=== PATIENT | female | born 1945 | race Caucasian/White ===

== ENCOUNTER → 2018-08-24 16:40 | Outpatient (CLI) | payer MEDICARE, BC, SELFPAY ==
[2018-08-24 18:55] LABS: Glucose 157 mg/dL (80-110); HEMOLYSIS < 15 (0-50); Potassium 3.9 mmol/L (3.4-5.1)
== END ==
PROVIDERS: PCP Podiatrist; Visit Provider Podiatrist
DX: Z01.818 Encounter for other preprocedural examination (principal)
CPT/HCPCS: 36415; 82947; 84132; 93005; 93010

== ENCOUNTER → 2019-02-13 10:15 | Outpatient (CLI) | payer MEDICARE, OTHER, SELFPAY ==
--- NOTE | 2019-02-13 10:20 | DI.RAD.S_ITS ---
PROCEDURE: XR HUMERUS RT 2V INDICATIONS: rule out fracture TECHNIQUE: 2 views of the humerus were acquired. COMPARISON: None. FINDINGS: Bones: No fractures or dislocations. No suspicious bony lesions. There is right shoulder joint degeneration. Right elbow chronic appearing degenerative changes. Soft tissues: No suspicious soft tissue calcifications. IMPRESSION: No humerus fracture identified. Right shoulder joint degeneration. Degenerative changes at the right elbow which could be better evaluated with dedicated right elbow radiographs. Dictated by: Jas Alfred M.D. on 02/13/2019 at 11:43 Approved by: Jas Alfred M.D. on 02/13/2019 at 11:46
== END ==
PROVIDERS: PCP Nurse Practitioner; Visit Provider Nurse Practitioner
DX: M79.601 Pain in right arm (principal); S49.91XA Unspecified injury of right shoulder and upper arm, initial encounter; M19.011 Primary osteoarthritis, right shoulder; W18.30XA Fall on same level, unspecified, initial encounter
CPT/HCPCS: 73060

== ENCOUNTER → 2019-03-04 12:21 | Outpatient (CLI) | payer MEDICARE, OTHER, SELFPAY ==
--- NOTE | 2019-03-04 | DI.MRI.S_ITS ---
PROCEDURE: MR CERVICAL SPINE WO CON INDICATIONS: Cervicalgia TECHNIQUE: Noncontrast sagittal T1 spin echo and T2 fast spin echo, sagittal STIR, foraminal oblique sagittal T2 fast spin echo, and axial gradient echo or T2 fast spin echo through the cervical spine. COMPARISON: [facility], CR, XR CERVICAL SPINE 2 OR 3 VIEWS, 02/22/2019, 9:33. FINDINGS: Image quality: Excellent. Alignment and Curvature: There is loss of normal cervical lordosis. Bone Marrow: Marrow demonstrates normal overall signal. Spinal Cord: Visualized spinal cord has normal size and signal. No cerebellar tonsillar herniation. Paraspinous Soft Tissues: There is a large right thyroid mass measuring 83 mm craniocaudal by 64 mm transverse by 50 mm anteroposterior. C2-C3: Mild bilateral facet hypertrophy. Mild canal stenosis. Mild bilateral foraminal stenosis. C3-C4: Mild disc desiccation and diffuse disc bulge. Moderate left and mild right facet hypertrophy. Mild canal stenosis. Severe left and mild right foraminal stenosis. Left C3 nerve root compression. C4-C5: Mild disc height loss and desiccation. Mild diffuse disc bulge. Moderate left and mild right facet hypertrophy. Moderate canal stenosis. Moderate left and mild right foraminal stenosis. C5-C6: Mild disc height loss and desiccation. Mild diffuse disc bulge. Mild facet and uncovertebral hypertrophy bilaterally. Moderate canal stenosis. Moderate right and mild left foraminal stenosis. C6-C7: Severe disc height loss and desiccation. Mild diffuse disc bulge. Mild bilateral facet hypertrophy. Moderate canal stenosis. Moderate bilateral foraminal stenosis. C7-T1: Mild disc height loss and desiccation. Moderate diffuse disc bulge with small superimposed broad-based central protrusion. Mild facet hypertrophy. Mild canal stenosis. No foraminal stenosis. IMPRESSION: 1. Large right thyroid mass; recommend further assessment with ultrasound. 2. Multilevel degenerative disc and facet disease. 3. Multilevel canal stenoses, worst at C4-C5, C5-C6, and C6-C7, where there are moderate canal stenoses present. 4. Multilevel foraminal stenoses, worst on the left at C3-C4 where there is left C3 nerve root compression. Recommend correlation with clinical symptoms to ascertain relevance of this finding. Dictated by: Terri Tai M.D. on 03/06/2019 at 9:30 Approved by: Terri Tai M.D. on 03/06/2019 at 9:35
== END ==
PROVIDERS: PCP Nurse Practitioner; Visit Provider Orthopaedic Surgery
DX: M50.31 Other cervical disc degeneration, high cervical region (principal); M48.02 Spinal stenosis, cervical region; E07.9 Disorder of thyroid, unspecified
CPT/HCPCS: 72141

== ENCOUNTER → 2019-04-20 10:27 | Outpatient (CLI) | payer MEDICARE, OTHER, SELFPAY ==
--- NOTE | 2019-04-20 10:29 | DI.US.S_ITS ---
PROCEDURE: US THYROID INDICATIONS: RIGHT THYROID LUMP TECHNIQUE: Real-time scanning was performed of the thyroid gland, with image documentation. COMPARISON: None. FINDINGS: Right: Thyroid lobe measures 8.3 x 3.8 x 6.2 cm, and is diffusely heterogeneous in echotexture. Left: Thyroid lobe measures 4.7 x 1.3 x 1.6 cm, and is homogenous in echotexture. Isthmus: 3.0 mm thick. Nodule number: 1 Location: Left mid to inferior Size: 2.4 x 0.7 x 1.2 cm. Composition: Solid Echogenicity: Hypoechoic Shape: wider than tall. Margins: Smooth Echogenic foci: None Total points: 4 ACR TI-RADS category: Moderately suspicious Nodule number: 2 Location: Left superior Size: 0.6 x 0.4 x 0.5 cm. Composition: Solid Echogenicity: Isoechoic Shape: wider than tall. Margins: Smooth Echogenic foci: None Total points: 3 ACR TI-RADS category: Mildly suspicious IMPRESSION: 1. Left thyroid nodules as above. Recommend sonographically directed fine needle aspiration of dominate # 1 left mid to inferior nodule. 2. Diffusely enlarged, heterogeneous and multinodular appearance of the right thyroid ACR TI-RADS definitions and recommendations: TI-RADS 1 (benign): 0 points. FNA not needed. TI-RADS 2 (not suspicious): 2 points. FNA not needed. TI-RADS 3 (mildly suspicious): 3 points. * FNA if 2.5 cm or larger, follow up if 1.5 cm or larger (at 1, 3, and 5 years). TI-RADS 4 (moderately suspicious): 4-6 points. * FNA if 1.5 cm or larger, follow up if 1 cm or larger (at 1, 2, 3, and 5 years). TI-RADS 5 (highly suspicious): 7 points or more. * FNA if 1 cm or larger, follow up if 0.5 cm or larger (every year for 5 years). Dictated by: Constantine Mesa A Interpreted: Jayleen Alba MD on 04/26/2019 at 9:24 Approved by: Jayleen Alba MD, PhD on 04/26/2019 at 16:43
== END ==
PROVIDERS: PCP Nurse Practitioner; Visit Provider Nurse Practitioner
DX: E04.2 Nontoxic multinodular goiter (principal)
CPT/HCPCS: 76536

== ENCOUNTER → 2019-06-16 09:44 | Outpatient (CLI) | payer MEDICARE, OTHER, SELFPAY ==
--- NOTE | 2019-06-16 | PATH_ITS ---
Note [facility] Accession Number: [id number] TESTS RESULT FLAG UNITS REF RANGE LAB Clinician Provided Cytology Information No. of containers..01 Other (Miscellaneous) No. of containers..00 Previously Prepared Cytology Slide 01 L THYROID MASS DIAGNOSIS: 01 LEFT THYROID MASS, FINE NEEDLE ASPIRATION. NEGATIVE FOR MALIGNANT CELLS. ADEQUATE FOR EVALUATION. FOLLICULAR GROUPS ARE PRESENT. BENIGN FOLLICULAR (GOITEROUS) NODULE (BETHESDA CATEGORY II), SEE COMMENT. COMMENT: MICROSCOPIC EXAMINATION REVEALS A MILDLY CELLULAR ASPIRATE, COMPOSED OF COLLOID, FOLLICULAR GROUPS WITHOUT SIGNIFICANT CYTOLOGIC OR ARCHITECTURAL ATYPIA, AND FEW BACKGROUND MACROPHAGES. THESE FINDINGS SUPPORT A BENIGN FOLLICULAR (GOITEROUS) NODULE. CORRELATION WITH CLINICAL AND RADIOGRAPHIC FINDINGS IS RECOMMENDED. ACCORDING TO THE [place]DA REPORTING SYSTEM FOR THYROID CYTOPATHOLOGY, THE RISK OF MALIGNANCY IN THE CATEGORY BENIGN-CATEGORY II IS 0-3%; THEREFORE RECOMMEND CONTINUED ULTRASOUND SURVEILLANCE WITH REPEAT FNA IF THE NODULE SIGNIFICANTLY INCREASES IN SIZE. Pathologist ICD10: 01 E04.1 01 73 year old female with PMH of denergative disc disease, HTN, and NIDDM2. She presents to clinic for pre-op surgery clearance. Never a smoker. 01 Dajuan Worley MD, Pathologist NPI- [id number] 01 Michael Delgadillo, Foam Caster ([facility]) 01 30 CC, PALE YELLOW, CLEAR Also received 5 alcohol fixed, 5 quick stained slides, and 1 RNA vial. /[facility] 06/19/2019 1019 Local FLAG LEGEND: L-Low Normal,H-High Normal,LL-Alert Low,HH-Alert High <-Panic Low,>-Panic High,A-Abnormal,AA-Critical Abnormal Performed at: 01 =Z [facility] [address], [place] [address] Erich Ojeda MD, Specimen Comment: A duplicate report has been generated due to demographic updates. Performed at: 01 [facility] [address] [place] [address] [address], [place], [place] [id number] MD Erich Ojeda MD Phone: [phone]
--- NOTE | 2019-06-16 09:45 | DI.US.S_ITS ---
PROCEDURE: US FINE NEEDLE ASPIRATION INDICATIONS: THYROID MASS, BX OF LT THYROID, ABN US ON 04/20/2019 TECHNIQUE: The indications, alternatives, benefits, risks, and complications of the procedure were explained to the patient. Written informed consent was obtained and placed in the chart. The thyroid region was examined sonographically and a site was chosen for ultrasound guided percutaneous sampling. The skin was prepared and draped in the usual fashion, and anesthetized with 1% lidocaine infiltrated from the skin down to the thyroid gland. Multiple passes were then performed, with contents emptied into an appropriate pathology specimen container. A bandage was applied to the area of access at completion of the study. COMPARISON: None. FINDINGS: Location(s) of lesion(s) sampled: Inferior left lobe Neptune: 25 gauge hypodermic needles. Number of passes: 5 Medications: 1% lidocaine for local anaesthesia. Complications: None. IMPRESSION: Successful ultrasound-guided thyroid nodule fine needle aspiration, with cytology results pending. Please see chart below for management recommendations based on cytology results. [facility] ReportingRecommendationsNon-diagnostic* Repeat US-guided FNA, with on-site cytology evaluation if possible. * Repeated non-diagnostic nodules without high suspicion US features: close observation vs surgical consult. * Consider surgery if nodule has high suspicion US features, grows >20% in 2 dimensions on followup, or patient has clinical risk factors for malignancy. Benign* If nodule has high suspicion US features: repeat US and FNA within 12 months. * If nodule has low to intermediate suspicion US features: repeat US at 12-24 months. If nodule grows (20% increase in at least 2 dimensions, with minimal increase of 2 mm or >50% change in volume), or development of new suspicious US features, then repeat FNA or continue followup. * If nodule has very low suspicion US features: followup US at >24 months. Atypia of undetermined significance, follicular lesion of undetermined significanceRepeat FNA, molecular testing, followup US, or surgical consult.Follicular neoplasm, suspicious for follicular neoplasmSurgical consult; also consider molecular testing. Suspicious for malignancySurgical consult.MalignantSurgical consult. Dictated by: Jas Alfred M.D. on 06/16/2019 at 12:24 Approved by: Jas Alfred M.D. on 06/16/2019 at 12:24
== END ==
PROVIDERS: PCP Nurse Practitioner; Referring Provider Nurse Practitioner; Visit Provider Nurse Practitioner
DX: R93.89 Abnormal findings on diagnostic imaging of other specified body structures (principal); R94.6 Abnormal results of thyroid function studies
CPT/HCPCS: 10005

== ENCOUNTER → 2020-01-24 10:46 | Outpatient (CLI) | payer MEDICARE, OTHER, SELFPAY ==
--- NOTE | 2020-01-24 | DI.US.S_ITS ---
PROCEDURE: US PELVIC COMPLETE INDICATIONS: POSTMEN. BLEEDING TECHNIQUE: Real-time scanning was performed of the pelvic organs, with image documentation. Additional endovaginal scanning was necessary due to incomplete visualization of the adnexal and endometrial structures by transabdominal scanning. COMPARISON: None. FINDINGS: Transabdominal scanning: Limited scanning through the kidneys shows no hydronephrosis. No pathologic free abdominal or pelvic fluid. Endovaginal scanning: Uterus: Uterus is normal in size at 11.0 x 6.8 x 6.8 cm. The endometrium not well seen . Right anterior intramural fibroid measuring 3.3 x 2.5 x 2.8 cm. Right anterior intramural fibroid measuring 2.8 x 1.9 x 2.7 cm left posterior intramural fibroid measuring 3.5 x 2.6 x 3.0 cm. A polyp (versus submucosal fibroid) is seen within the endocervical canal, which measures 1.3 x 0.8 x 1.0 cm. Ovaries: Neither of the ovaries are sonographically visualized. IMPRESSION: Nonspecific polyp seen within the endocervical canal. Endometrium is not well seen sonographically. Technically cannot exclude endometrial neoplasm therefore please correlate clinically and if necessary endometrial sampling could be performed. Dictated by: Jas Alfred M.D. on 01/24/2020 at 16:13 Approved by: Jas Alfred M.D. on 01/24/2020 at 16:18
== END ==
PROVIDERS: PCP Physician Assistant; Referring Provider Physician Assistant; Visit Provider Physician Assistant
DX: N95.0 Postmenopausal bleeding (principal); D25.1 Intramural leiomyoma of uterus; N84.1 Polyp of cervix uteri
CPT/HCPCS: 76830; 76856

== ENCOUNTER → 2021-11-10 08:52 | Outpatient (CLI) | payer MEDICARE, OTHER, SELFPAY ==
--- NOTE | 2021-11-10 08:53 | DI.MRI.S_ITS ---
PROCEDURE: MR CERVICAL SPINE WO/W CON INDICATIONS: SCIATICA TECHNIQUE: Noncontrast sagittal T1 spin echo and T2 fast spin echo, sagittal STIR, foraminal oblique sagittal T2 fast spin echo, axial gradient echo or T2 fast spin echo through the cervical spine. After the administration of contrast, axial and sagittal T1 spin echo with fat saturation through the cervical spine. COMPARISON: [facility], US, US FINE NEEDLE ASPIRATION, 06/16/2019, 10:08. [facility], MR, MR CERVICAL SPINE WO CON, 03/04/2019, 12:26. [facility], US, US THYROID, 01/29/2020, 10:22. [facility], US, US THYROID, 01/10/2021, 10:01. [facility], MR, MR THORACIC SPINE WO/W CON, 11/10/2021, 9:15. FINDINGS: Image quality: This examination is limited by involuntary motion artifact. Alignment and curvature: There is minimal anterolisthesis seen at C3-C4 and C4-C5. Minimal anterolisthesis is also seen at the C7-T1 level. Marrow: Marrow is normal in overall signal, without suspicious enhancement. Spinal cord: Visualized spinal cord has normal size and signal. No cerebellar tonsillar herniation. No abnormal intramedullary enhancement. Paraspinous soft tissues: A right-sided mass is again seen and measures 7.8 cm cranial caudally on this study. C2-3: The disc height is well-preserved. Loss of disc signal is seen at this level. A mild degree of generalized disc osteophyte complex is seen. Mild to moderate facet hypertrophy is seen. Moderate bilateral neural foraminal narrowing is seen. No central canal narrowing is seen. When comparison is made with the prior images, these findings are similar. C3-4: The disc height is well-preserved. Loss of disc signal is seen at this level. Mild to moderate disc osteophyte complex is seen. There is moderate right-sided and at least moderate left-sided facet hypertrophy seen. There is moderate to severe left-sided and moderate right-sided neural foraminal narrowing. No central canal narrowing is seen. When comparison is made with the prior images, these findings are similar. C4-5: The disc height is well-preserved. Loss of disc signal is seen at this level. Moderate generalized disc osteophyte complex is seen. There is mild right-sided and at least moderate left-sided facet hypertrophy. There is moderate right-sided and at least moderate left-sided neural foraminal narrowing. Moderate central canal narrowing is seen. There is associated mass effect upon the ventral spinal cord. When comparison is made with the prior images, these findings are similar. C5-6: Moderate loss of disc height is seen. Loss of disc signal is seen. At least moderate disc osteophyte complex is seen. There is moderate right-sided and [id number] left-sided facet hypertrophy. There is moderate to severe bilateral neural foraminal narrowing seen, right worse than left. Mild to moderate central canal narrowing is seen at this level. When comparison is made with the prior images, these findings are similar. C6-7: [id number] loss of disc height and disc signal can be seen. Moderate disc osteophyte complex is seen, which is eccentric to the left. There is at least moderate facet hypertrophy seen. There is at least moderate bilateral neural foraminal narrowing seen. Mild to moderate central canal narrowing is seen at this level. No significant change from the prior. C7-T1: The disc height is well-preserved. Loss of disc signal is seen at this level. A mild degree of generalized disc osteophyte complex is seen. Moderate facet joint hypertrophy is seen. There is minimal right-sided and no left-sided neural foraminal narrowing. No central canal narrowing is seen. No significant change from the prior. IMPRESSION: Multiple levels of cervical spine degenerative change are seen, which are not significantly progressed compared to 2019. A right-sided thyroid mass is again seen. This has been previously evaluated by ultrasound and previously biopsied in 2019, with no findings of neoplasm. If clinically appropriate, a repeat biopsy could be considered. Dictated by: Oscar Ortiz M.D. on 11/10/2021 at 14:03 Approved by: Oscar Ortiz M.D. on 11/10/2021 at 14:10
--- NOTE | 2021-11-10 09:51 | DI.MRI.S_ITS ---
PROCEDURE: MR THORACIC SPINE WO/W CON INDICATIONS: SCIATICA TECHNIQUE: Noncontrast sagittal T1 spin echo and T2 fast spin echo, sagittal STIR, axial T1 and T2 fast spin echo through the thoracic spine. After the administration of contrast, axial and sagittal T1 spin echo with fat saturation through the thoracic spine. COMPARISON: [facility], US, US THYROID, 01/29/2020, 10:22. [facility], US, US THYROID, 01/10/2021, 10:01. FINDINGS: Image quality: Excellent. Alignment and curvature: There Modic type 2 reactive endplate changes noted adjacent the C5-C6 disc. Marrow: Marrow is of normal overall signal. No acute vertebral body compression fractures. Spinal cord: Visualized spinal cord is of normal signal and size, without abnormal enhancement. Paraspinous soft tissues: There is a large 5.3 x 6.2 x 8.5 centimeter enhancing mass rising from the right lobe of the thyroid gland. Thyroid mass is causing leftward deviation of the trachea. Miscellaneous: Loss of signal noted in the disc throughout the thoracic spine. Loss of disc height noted in the T3-T4, T4-T5, T5-T6, T7-T8 and T8-T9 disc. T4-3-T4, T4-T5, T5-T6, T7-T8, T8-T9 and T9-T10 small disc protrusions. No severe central canal narrowing. No severe neural foraminal narrowing. IMPRESSION: 1. Multilevel degenerative disc disease. 2. No severe central canal narrowing. 3. No severe neural foraminal narrowing. 4. No neural compression. 5. No vertebral body compression fracture. 6. 5.3 x 6.2 x 8.5 centimeter right thyroid mass. Recommend ultrasound-guided fine-needle aspiration for additional evaluation of the thyroid mass. Dictated by: Jayleen Alba MD, PhD on 11/10/2021 at 11:49 Approved by: Jayleen Alba MD, PhD on 11/10/2021 at 12:03
== END ==
PROVIDERS: PCP Family Medicine; Referring Provider Family Medicine; Visit Provider Family Medicine
DX: M47.812 Spondylosis without myelopathy or radiculopathy, cervical region (principal); M51.34 Other intervertebral disc degeneration, thoracic region; E07.9 Disorder of thyroid, unspecified; M54.42 Lumbago with sciatica, left side; M54.41 Lumbago with sciatica, right side; Z87.39 Personal history of other diseases of the musculoskeletal system and connective tissue
CPT/HCPCS: 72156; 72157

== ENCOUNTER → 2021-11-11 08:50 | Outpatient (CLI) | payer MEDICARE, OTHER, SELFPAY ==
--- NOTE | 2021-11-11 | DI.MRI.S_ITS ---
PROCEDURE: MR LUMBAR SPINE WO/W CON INDICATIONS: LUMBAGO WITH SCIATICA TECHNIQUE: Noncontrast sagittal T1 spin echo and T2 fast echo, sagittal STIR, and T2 fast spin echo through the lumbar spine. In cases with scoliosis, additional coronal T2 fast spin echo may be performed. COMPARISON: [facility], MR, MR THORACIC SPINE WO/W CON, 11/10/2021, 9:15. FINDINGS: Image quality: Excellent. Alignment and Curvature: There is normal bony alignment. Bone Marrow: Marrow is of normal overall signal. No acute vertebral body compression fractures. Spinal Cord: Conus medullaris terminates at the L1 level. Visualized cord demonstrates normal signal and size. Paraspinous Soft Tissues: No paravertebral masses. There is a partially visualized nonenhancing simple appearing cyst seen along the posterior aspect of the left kidney that measures up to 1.8 cm, as on series 16 image 1. T12-L1: Moderate loss of disc height is seen. Loss of disc signal is seen. Mild generalized disc bulge is seen. There is a mild central/left disc protrusion, as on series 5, image 4. No significant neural foraminal or central canal narrowing can be seen. L1-L2: The disc height is well-preserved. Loss of disc signal is seen at this level. Mild generalized disc bulge is seen. There is hoco-fz-dgkwlfwg left-sided and no right-sided neural foraminal narrowing. Mild central canal narrowing is seen. L2-L3: The disc height is well-preserved. Loss of disc signal is seen at this level. Moderate generalized disc bulge is seen. There is a superimposed central disc protrusion. Mild facet joint hypertrophy is seen. Moderate bilateral neural foraminal narrowing is seen. Moderate central canal narrowing is seen. L3-L4: Moderate to severe loss of disc height and disc signal can be seen. Reactive marrow endplate changes are seen, which are hyperintense on T1-weighted and T2-weighted imaging and most consistent with fatty metaplasia (Modic type II changes). At least moderate disc bulge is seen. There is a central/left disc extrusion seen, with inferior migration of the disc material, as on series 5, image 20 and on series 2, image 12. Moderate facet joint hypertrophy is seen. Prior left hemilaminectomy change is seen. There is moderate to severe bilateral neural foraminal narrowing seen, with an associated a degree of compression seen upon the exiting nerve roots. Moderate central canal narrowing is seen. L4-L5: Mild loss of disc height is seen. Loss of disc signal is seen. Moderate generalized disc bulge is seen. Prior right hemilaminectomy change can be seen. Mild to moderate facet hypertrophy is seen. There is moderate to severe bilateral neural foraminal narrowing seen, with an associated a degree of compression seen upon the exiting nerve roots. No significant central canal narrowing is seen. L5-S1: At least moderate loss of disc height and disc signal can be seen. Reactive marrow endplate changes are seen, which are hyperintense on T1-weighted and T2-weighted imaging and most consistent with fatty metaplasia (Modic type II changes). Mild to moderate disc bulge is seen. Mild facet joint hypertrophy is seen. There is moderate to severe bilateral neural foraminal narrowing seen, with an associated a degree of compression seen upon the exiting nerve roots. IMPRESSION: Multiple levels of lumbar spine degenerative change are seen, which are overall worst at the L3-L4 level, where there is a central/left disc extrusion seen. Several sites of significant neural foraminal narrowing can be seen, with associated exiting nerve root compression. Prior hemilaminectomy change can be seen at L3-L4 and L4-L5. Dictated by: Oscar Ortiz M.D. on 11/11/2021 at 10:42 Approved by: Oscar Ortiz M.D. on 11/11/2021 at 10:50
--- NOTE | 2021-11-11 | DI.MRI.S_ITS ---
PROCEDURE: MR PELIS WO/W CON INDICATIONS: LUMBAGO WITH SCIATICA TECHNIQUE: Noncontrast axial and oblique coronal T1 spin echo and STIR through the sacroiliac joints. COMPARISON: None. FINDINGS: Image quality: Excellent. Bones: There is mild sacroiliac joint space narrowing and subchondral sclerosis. No adjacent bone marrow edema to suggest active sacroiliitis. No bony ankylosis. No suspicious marrow space occupying lesions. Soft tissues: No presacral masses. Rectum appears normal in caliber and wall thickness. No pathologic free pelvic fluid. Visualized bilateral sacral plexus shows no signal abnormalities. Edema within left obturator internus muscle is noted at the level of ischial tuberosity. Mild edema surrounding left hamstring tendon origin at ischial tuberosity is also seen. IMPRESSION: 1. Mild bilateral sacroiliac joint osteoarthritis. No evidence of active sacroiliitis. No ankylosis. 2. Suggestion of muscle strain/partial-thickness tear involving left obturator internus muscle at the level of ischial tuberosity. Tendinosis involving left hamstring tendon origin at left ischial tuberosity is also noted. Dictated by: Modesto Burt M.D. on 11/11/2021 at 16:46 Approved by: Modesto Burt M.D. on 11/11/2021 at 16:53
== END ==
PROVIDERS: PCP Family Medicine; Referring Provider Family Medicine; Visit Provider Family Medicine
DX: M51.16 Intervertebral disc disorders with radiculopathy, lumbar region (principal); M47.26 Other spondylosis with radiculopathy, lumbar region; M48.061 Spinal stenosis, lumbar region without neurogenic claudication; Z87.39 Personal history of other diseases of the musculoskeletal system and connective tissue
CPT/HCPCS: 72158; 72197; A9579

== ENCOUNTER → 2022-02-02 13:26 | Outpatient (CLI) | payer MEDICARE, OTHER, SELFPAY | PROVIDERS: PCP Family Medicine; Referring Provider Family Medicine; Visit Provider Family Medicine | DX: N39.0 Urinary tract infection, site not specified (principal) | CPT/HCPCS: 87086 ==